=== PATIENT | male | born 1965 | race Caucasian/White ===

== ENCOUNTER 2018-12-09 20:41 | Inpatient (IN) | payer SELFPAY ==
[2018-12-09 20:52] LABS: ADD MAN DIFF? NO
[2018-12-09 20:54] LABS: WHITE BLOOD COUNT 6.7 10^3/ul (4.8-10.8)
[2018-12-09 20:54] LABS: BASOPHILS % 0.6 % (0.0-2.0); EOSINOPHILS # 0.7 10^3/ul (0.0-0.5); EOSINOPHILS % 10.9 % (0.0-7.0); HEMATOCRIT 45.6 % (42.0-52.0); HEMOGLOBIN 14.9 g/dl (14.0-18.0); LYMPHOCYTES # 2.5 10^3/ul (0.8-2.9); LYMPHOCYTES % 37.3 % (15.0-51.0); MEAN CORPUSCULAR HEMOGLOBIN 29.4 pg (29.0-33.0); MEAN CORPUSCULAR HGB CONC 32.7 g/dl (32.0-37.0); MEAN CORPUSCULAR VOLUME 89.9 fl (82.0-101.0); MEAN PLATELET VOLUME 11.1 fl (7.4-10.4); MONOCYTE # 0.6 10^3/ul (0.3-0.9); MONOCYTES % 9.1 % (0.0-11.0); NEUTROPHIL # 2.8 10^3/ul (1.6-7.5); NEUTROPHILS % 41.7 % (39.0-77.0); PLATELET COUNT 204 10^3/UL (140-415); RED BLOOD COUNT 5.07 10^6/ul (4.70-6.10); RED CELL DISTRIBUTION WIDTH 12.4 % (11.5-14.5)
[2018-12-09] MEDS: METHYLPREDNISOLONE 125 MG INJ IV (21:00)
[2018-12-09] MEDS: IPRATROPIUM (NEB) 0.5 MG/2.5 ML AMP NEB (21:04)
[2018-12-09] MEDS: ALBUTEROL 0.083% (NEB) 2.5 MG/3 ML AMP NEB (21:04)
[2018-12-09 21:12] LABS: ALANINE AMINOTRANSFERASE 21 IU/L (13-69); ALBUMIN/GLOBULIN RATIO 1.25; ALKALINE PHOSPHATASE 82 IU/L (42-121); ANION GAP 3 (5-13); ASPARTATE AMINO TRANSFERASE 27 IU/L (15-46); BILIRUBIN,INDIRECT 0.2 mg/dl (0-1.1); BILIRUBIN,TOTAL 0.2 mg/dl (0.2-1.3); BLOOD UREA NITROGEN 14 mg/dl (7-20); CALCIUM 9.4 mg/dl (8.4-10.2); CARBON DIOXIDE 36 mmol/L (21-31); CHLORIDE 99 mmol/L (97-110); CREATININE 0.97 mg/dl (0.61-1.24); Estimated GFR > 60 mL/min (>60); GLUCOSE 115 mg/dl (70-220); POTASSIUM 3.8 mmol/L (3.5-5.1); SODIUM 138 mmol/L (135-144); TOTAL PROTEIN 7.2 g/dl (6.1-8.1)
[2018-12-09 21:13] LABS: INR 0.92; PROTIME 12.5 Sec (11.9-14.9)
[2018-12-09 21:14] LABS: PARTIAL THROMBOPLASTIN TIME 27.5 Sec (23.0-35.0)
[2018-12-09 21:23] LABS: TROPONIN-I < 0.012 ng/ml (0.000-0.120)
[2018-12-09] MEDS ORDERED: ACETAMINOPHEN 325 MG TAB PO ×2 (22:00→23:00)
[2018-12-09] MEDS ORDERED: ONDANSETRON 4 MG INJ IV ×2 (22:00→23:00)
[2018-12-09] MEDS ORDERED: HYDROCODONE/APAP (5/325) TAB PO (23:00)
[2018-12-09] MEDS ORDERED: NACL 0.9% 3 ML SYG IV (23:00)
[2018-12-09] MEDS ORDERED: morphine 2 MG INJ IV (23:00)
[2018-12-09] MEDS ORDERED: BUDESONIDE (NEB) 0.5MG/2ML AMP HHN (23:00)
[2018-12-09] MEDS ORDERED: NITROGLYCERIN (SL) 0.4 MG TAB SL (23:00)
[2018-12-09 23:02] LABS: ADD UMIC NO; UR ASCORBIC ACID NEGATIVE (NEGATIVE); UR BILIRUBIN (Dip) NEGATIVE (NEGATIVE); UR BLOOD (Dip) NEGATIVE (NEGATIVE); UR CLARITY CLEAR (CLEAR); UR COLOR STRAW (YELLOW); UR GLUCOSE (Dip) NEGATIVE (NEGATIVE); UR KETONES (Dip) NEGATIVE (NEGATIVE); UR LEUKOCYTE ESTERASE (Dip) NEGATIVE Leu/ul (NEGATIVE); UR NITRITE (Dip) NEGATIVE (NEGATIVE); UR SPECIFIC GRAVITY (Dip) 1.008 (1.003-1.030); UR TOTAL PROTEIN (Dip) NEGATIVE (NEGATIVE); UR UROBILINOGEN (Dip) NEGATIVE (NEGATIVE)
[2018-12-09 23:14] LABS: BARBITURATES Negative (NEGATIVE); BENZODIAZEPINES Negative (NEGATIVE); CANNABINOIDS Positive (NEGATIVE); COCAINE Positive (NEGATIVE)
[2018-12-09 23:17] LABS: OPIATES Positive (NEGATIVE)
[2018-12-09 23:27] LABS: AMPHETAMINE/METHAMPHETAMINE POSITIVE (NEGATIVE)
[2018-12-10] MEDS: ATORVASTATIN 80 MG TAB PO (00:48)
[2018-12-10 01:30] LABS: LACTIC ACID 1.3 mmol/L (0.5-2.0)
[2018-12-10] MEDS ORDERED: hydrALAzine 20 MG INJ IV (01:30)
[2018-12-10 01:34] LABS: TROPONIN-I < 0.012 ng/ml (0.000-0.120)
[2018-12-10] MEDS: AZITHROMYCIN 500MG/NS (PMX) 250 ML IVPB (01:36)
[2018-12-10] MEDS: BUDESONIDE (NEB) 0.5MG/2ML AMP HHN ×2 (01:59→08:25)
[2018-12-10] MEDS: ALBUTEROL/IPRATROPIUM (NEB) 3 ML AMP HHN ×2 (01:59→08:13)
[2018-12-10 06:28] LABS: ADD MAN DIFF? NO
[2018-12-10 06:46] LABS: WHITE BLOOD COUNT 5.8 10^3/ul (4.8-10.8)
[2018-12-10 06:46] LABS: BASOPHILS % 0.3 % (0.0-2.0); HEMATOCRIT 50.1 % (42.0-52.0); LYMPHOCYTES # 0.7 10^3/ul (0.8-2.9); LYMPHOCYTES % 11.9 % (15.0-51.0); MEAN CORPUSCULAR HEMOGLOBIN 29.8 pg (29.0-33.0); MEAN CORPUSCULAR HGB CONC 33.9 g/dl (32.0-37.0); MEAN CORPUSCULAR VOLUME 87.9 fl (82.0-101.0); MEAN PLATELET VOLUME 11.2 fl (7.4-10.4); MONOCYTES % 0.7 % (0.0-11.0); NEUTROPHILS % 86.9 % (39.0-77.0); PLATELET COUNT 246 10^3/UL (140-415); RED CELL DISTRIBUTION WIDTH 12.2 % (11.5-14.5)
[2018-12-10 06:54] LABS: HEMOGLOBIN A1C 5.4 % (0-5.9)
[2018-12-10 07:09] LABS: ALANINE AMINOTRANSFERASE 20 IU/L (13-69); ALBUMIN 4.3 g/dl (3.3-4.9); ALBUMIN/GLOBULIN RATIO 1.26; ALKALINE PHOSPHATASE 86 IU/L (42-121); ANION GAP 12 (5-13); ASPARTATE AMINO TRANSFERASE 26 IU/L (15-46); BILIRUBIN,INDIRECT 0.4 mg/dl (0-1.1); BILIRUBIN,TOTAL 0.4 mg/dl (0.2-1.3); BLOOD UREA NITROGEN 12 mg/dl (7-20); CALCIUM 10.2 mg/dl (8.4-10.2); CARBON DIOXIDE 27 mmol/L (21-31); CHLORIDE 102 mmol/L (97-110); CHOL/HDL RATIO 2.9 RATIO; CHOLESTEROL 190 mg/dl (100-200); CREATININE 0.64 mg/dl (0.61-1.24); Estimated GFR > 60 mL/min (>60); GLUCOSE 146 mg/dl (70-220); HDL CHOLESTEROL 65 mg/dl (28-71); LDL CHOLESTEROL,CALCULATED 117 mg/dl; MAGNESIUM 2.2 mg/dl (1.7-2.5); POTASSIUM 4.7 mmol/L (3.5-5.1); SODIUM 141 mmol/L (135-144); TOTAL PROTEIN 7.7 g/dl (6.1-8.1); TRIGLYCERIDES 42 mg/dl (0-149)
[2018-12-10 07:18] LABS: TROPONIN-I < 0.012 ng/ml (0.000-0.120)
[2018-12-10 07:38] LABS: THYROID STIMULATING HORMONE 0.793 MIU/L (0.465-4.680)
[2018-12-10] MEDS: ASPIRIN 81 MG TAB PO (08:33)
[2018-12-10] MEDS ORDERED: predniSONE 20 MG TAB PO (09:00)
== END 2018-12-10 11:43 | disposition home or self-care (01) | DRG 897 ==
LOC: TEL 21:52 → E/R 20:41
DX: F15.188 Other stimulant abuse with other stimulant-induced disorder (principal); F11.188 Opioid abuse with other opioid-induced disorder; F14.188 Cocaine abuse with other cocaine-induced disorder; F12.188 Cannabis abuse with other cannabis-induced disorder; R07.89 Other chest pain; J45.909 Unspecified asthma, uncomplicated; Z87.891 Personal history of nicotine dependence
CPT/HCPCS: 36415; 71045; 80053; 80061; 80307; 81003; 83036; 83605; 83735; 84443; 84484; 85025; 85610; 85730; 87040; 87086; 87400; 93005; 94640; 94644; 94664; 96374; 99291-25